=== PATIENT | male | born 1960 | race Two or more races ===

== ENCOUNTER 2024-09-16 21:50 | Inpatient (IN) | payer OTHER ==
[~2024-09-16] VITALS: Ht 165.1 cm; Wt 67.1 kg
[2024-09-16] MEDS: OXYMETAZOLINE HCL 0.05% 15 ML NASAL SPRAY NASAL ONE (22:47)
[2024-09-16] MEDS: TRANEXAMIC ACID 1,000 MG/10 ML VIAL TP ONE (22:47)
[2024-09-16 22:53] LABS: BASOPHILS % (AUTO) 0.3 % (0.0-2.0); EOSINOPHILS % (AUTO) 1.2 % (1.0-6.0); HEMATOCRIT 31.2 % (41-53); HEMOGLOBIN 10.5 g/dL (13.5-17.5); LYMPHOCYTES # (AUTO) 2.2 K/uL (1.0-4.8); LYMPHOCYTES % (AUTO) 18.8 % (22.0-44.0); MEAN CORPUSCULAR HGB CONC 33.5 G/dL (31.0-37.0); MEAN CORPUSCULAR VOLUME 95 fL (80-100); MONOCYTES % (AUTO) 8.9 % (2.0-9.0); NEUTROPHILS # (AUTO) 8.1 K/uL (1.8-7.7); NEUTROPHILS % (AUTO) 70.8 % (40.0-70.0); PLATELET COUNT (AUTO) 204 K/uL (150-450); RED BLOOD CELL COUNT(AUTO) 3.27 MIL/uL (4.50-5.90); RED CELL DISTRIBUTION WIDTH 16.5 % (11.5-14.5); WHITE BLOOD COUNT (AUTO) 11.5 K/uL (4.5-11.0)
[2024-09-16 23:05] LABS: CREATININE 2.04 mg/dL (0.60-1.30); POTASSIUM 4.8 mmol/L (3.5-5.1)
[2024-09-16 23:09] LABS: CALCIUM, TOTAL 12.7 mg/dL (8.8-10.5)
[2024-09-16 23:18] LABS: ALBUMIN 2.6 g/dL (3.4-5.0); BILIRUBIN,DIRECT 0.1 mg/dL (0.00-0.20); BILIRUBIN,TOTAL 0.4 mg/dL (0.1-1.0); TOTAL PROTEIN, SERUM 14.7 g/dL (6.4-8.2)
[2024-09-16] MEDS: SODIUM CHLORIDE 0.9% 1,000 ML IV ONE (23:58)
[2024-09-16] MEDS: HEPARIN SODIUM,PORCINE 5,000 UNITS/ML VIAL SQ SCH (23:59)
[2024-09-17 00:05] LABS: MAGNESIUM 3.6 mg/dL (1.80-2.40)
[2024-09-17] MEDS: SODIUM CHLORIDE 0.9% 1,000 ML IV SCH (00:34)
[2024-09-17 01:01] LABS: GLUCOMETER DEV NAME(LOC) ER.7; GLUCOSE,POINT OF CARE 160 MG/DL (70-110)
[2024-09-17 07:11] LABS: CREATININE 1.77 mg/dL (0.60-1.30); MAGNESIUM 3.3 mg/dL (1.80-2.40); POTASSIUM 4.7 mmol/L (3.5-5.1)
[2024-09-17 07:16] LABS: CALCIUM, TOTAL 11.9 mg/dL (8.8-10.5)
[2024-09-17 07:18] LABS: BASOPHILS % (AUTO) 0.2 % (0.0-2.0); EOSINOPHILS % (AUTO) 1.2 % (1.0-6.0); HEMATOCRIT 28.6 % (41-53); HEMOGLOBIN 9.8 g/dL (13.5-17.5); LYMPHOCYTES # (AUTO) 1.6 K/uL (1.0-4.8); MEAN CORPUSCULAR HEMOGLOBIN 32.5 pg (26.0-34.0); MEAN CORPUSCULAR HGB CONC 34.2 G/dL (31.0-37.0); MEAN CORPUSCULAR VOLUME 95 fL (80-100); MONOCYTES # (AUTO) 0.9 K/uL (0.1-1.0); MONOCYTES % (AUTO) 8.9 % (2.0-9.0); NEUTROPHILS # (AUTO) 7.9 K/uL (1.8-7.7); NEUTROPHILS % (AUTO) 74.7 % (40.0-70.0); PLATELET COUNT (AUTO) 167 K/uL (150-450); RED BLOOD CELL COUNT(AUTO) 3.01 MIL/uL (4.50-5.90); RED CELL DISTRIBUTION WIDTH 15.8 % (11.5-14.5); WHITE BLOOD COUNT (AUTO) 10.6 K/uL (4.5-11.0)
[2024-09-17] MEDS: ONDANSETRON HCL 4 MG/2 ML VIAL IVP PRN (09:00)
[2024-09-17] MEDS: ACETAMINOPHEN 325 MG TABLET PO PRN (09:01)
[2024-09-17] MEDS: DOCUSATE SODIUM 100 MG CAPSULE PO SCH (09:01)
[2024-09-17 11:12] LABS: CREATININE,URINE RANDOM 31.2 mg/dL (30.0-125.0)
[2024-09-17 12:15] VITALS: BP 154/91; PULSE 76; RESP 16; TEMP 98; O2SAT 98
[2024-09-17 15:04] VITALS: BP 136/89; PULSE 81; RESP 17; TEMP 98; O2SAT 97
[2024-09-17] MEDS: OXYMETAZOLINE HCL 0.05% 15 ML NASAL SPRAY NASAL SCH (21:00)
[2024-09-17 23:11] VITALS: BP 130/86; PULSE 86; RESP 18; TEMP 99; O2SAT 99
[2024-09-18 00:01] LABS: GLUCOMETER DEV NAME(LOC) 5N.1D; GLUCOSE,POINT OF CARE 199 MG/DL (70-110)
[2024-09-18 04:04] VITALS: BP 150/84; PULSE 83; RESP 18; TEMP 98.6; O2SAT 98
[2024-09-18 07:10] LABS: GLUCOMETER DEV NAME(LOC) 5N.1D; GLUCOSE,POINT OF CARE 161 MG/DL (70-110)
[2024-09-18 07:43] VITALS: BP 148/91; PULSE 81; RESP 18; TEMP 98.2; O2SAT 97
[2024-09-18 12:00] VITALS: BP 138/82; PULSE 84; RESP 18; TEMP 98; O2SAT 98
[2024-09-18 12:12] LABS: BASOPHILS % (AUTO) 0.2 % (0.0-2.0); EOSINOPHILS % (AUTO) 1.2 % (1.0-6.0); HEMATOCRIT 25.8 % (41-53); HEMOGLOBIN 8.8 g/dL (13.5-17.5); LYMPHOCYTES # (AUTO) 1.9 K/uL (1.0-4.8); LYMPHOCYTES % (AUTO) 18.8 % (22.0-44.0); MEAN CORPUSCULAR HEMOGLOBIN 32.3 pg (26.0-34.0); MEAN CORPUSCULAR HGB CONC 34.1 G/dL (31.0-37.0); MEAN CORPUSCULAR VOLUME 95 fL (80-100); MONOCYTES # (AUTO) 1.2 K/uL (0.1-1.0); NEUTROPHILS % (AUTO) 67.8 % (40.0-70.0); PLATELET COUNT (AUTO) 152 K/uL (150-450); RED BLOOD CELL COUNT(AUTO) 2.72 MIL/uL (4.50-5.90); RED CELL DISTRIBUTION WIDTH 15.7 % (11.5-14.5); WHITE BLOOD COUNT (AUTO) 10.3 K/uL (4.5-11.0)
[2024-09-18 12:22] LABS: CREATININE 1.66 mg/dL (0.60-1.30); POTASSIUM 4.2 mmol/L (3.5-5.1)
[2024-09-18 12:24] LABS: CALCIUM, TOTAL 11.7 mg/dL (8.8-10.5)
[2024-09-18 16:23] VITALS: BP 158/94; PULSE 83; RESP 18; TEMP 98.3; O2SAT 97
[2024-09-18 20:46] VITALS: BP 154/98; PULSE 81; RESP 18; TEMP 98.2; O2SAT 96
== END 2024-09-18 22:00 | disposition short-term general hospital (02) | DRG 150 ==
LOC: EMS 21:50 → EDH 09-17 01:50 → 5S 09-17 11:55
PROVIDERS: ADMIT Internal Medicine; ATTEND Internal Medicine
PROC: 2Y41X5Z Packing of Nasal Region using Packing Material (ICD-10-PCS; principal; 2024-09-17)
DX: R04.0 Epistaxis (principal); N17.0 Acute kidney failure with tubular necrosis; C90.00 Multiple myeloma not having achieved remission; D62 Acute posthemorrhagic anemia; I10 Essential (primary) hypertension; E83.52 Hypercalcemia; G89.29 Other chronic pain; E11.9 Type 2 diabetes mellitus without complications; M54.9 Dorsalgia, unspecified; F32.A Depression, unspecified; R74.8 Abnormal levels of other serum enzymes; E78.00 Pure hypercholesterolemia, unspecified; G43.909 Migraine, unspecified, not intractable, without status migrainosus; Z79.899 Other long term (current) drug therapy; Z88.0 Allergy status to penicillin
CPT/HCPCS: 30901; 80048; 80076; 82570; 82962; 83735; 84300; 85025; 85610; 85730; 86850; 86900; 86901; 93005; 96361; 96374; 99285; J1644; J2405; J3490; J7030; 36415-L1; 36415-TC